=== PATIENT | male | born 1945 | race Caucasian/White ===

== ENCOUNTER 2016-04-11 07:17 | Inpatient (IN) | payer MEDICARE ==
[2016-04-11 07:55] LABS: ABSOLUTE NEUTROPHIL COUNT 13.6 K/mm3 (1.8-7.7); BASO % 0.3 % (0.2-1.0); EOS % 0.1 % (0.9-2.9); HEMATOCRIT 32.3 % (32.0-52.0); HEMOGLOBIN 10.7 gm/l (14.0-18.0); IMM NEUT # 0.1 K/mm3 (0-0.2); IMM NEUT% 0.7 % (0-1); LYMPH # 0.2 (1.0-4.8); LYMPH % 1.3 % (15-45); MEAN CORPUSCULAR HEMOGLOBIN 30.5 pg (27.0-31.0); MEAN CORPUSCULAR HGB CONC 33.1 g/dl (33.0-37.0); MEAN PLATELET VOLUME 10.9 fl (7.4-10.4); MONO % 6.4 % (4-12); NEUT % 91.2 % (43-75); PLATELET COUNT 95 K/mm3 (130-400); RED CELL DISTRIBUTION WIDTH 14.6 % (11.5-14.5)
[2016-04-11] MEDS ORDERED: SODIUM CHLORIDE 0.9% 1,000 ML ONE (08:01)
[2016-04-11] MEDS ORDERED: ACETAMINOPHEN 500 MG TABLET ONE (08:01)
[2016-04-11 08:06] LABS: INR 2.54
[2016-04-11 08:12] LABS: ALB/GLOB RATIO 1.4 (>1.0); ALBUMIN 3.7 gm/dL (3.5-5.7); CALCIUM 8.8 mg/dL (8.6-10.3)
[2016-04-11] MEDS ORDERED: PIPERACILLIN SODIUM/TAZOBACTAM 3.375 G VIAL IV ONE (08:12)
[2016-04-11] MEDS ORDERED: PIPERACILLIN-TAZO PREMIX BAG 50 ML IV ONE (08:12)
[2016-04-11 08:15] LABS: TROPONIN I 0.04 ng/ml (0.0-0.06)
[2016-04-11 08:31] LABS: URINE BILIRUBIN NEGATIVE (NEGATIVE); URINE BLOOD 1+ (NEGATIVE); URINE GLUCOSE (UA) 1+ (NEGATIVE); URINE LEUKOCYTE ESTERASE NEGATIVE (NEGATIVE); URINE NITRITE NEGATIVE (NEGATIVE); URINE PROTEIN 2+ (NEGATIVE); URINE UROBILINOGEN NORMAL (0-1 mg/dl)
[2016-04-11 08:32] LABS: URINE APPEARANCE CLEAR; URINE COLOR YELLOW
[2016-04-11 08:40] LABS: URINE BACTERIA 0; URINE EPITHELIAL CELLS RARE /hpf; URINE WBC NEG /hpf
[2016-04-11 08:46] LABS: BAND 12 % (0-10); BASOPHIL 1 % (0-1); EOSINOPHIL 1 % (1-3); HYPOCHROMIA 1+; LYMPHOCYTE 5 % (15-45); MONOCYTE 3 % (4-12); NEUTROPHILS 78 % (43-75); PLATELET ESTIMATE NORMAL (NORMAL); TOTAL CELLS COUNTED 100
--- NOTE | 2016-04-11 09:10 | RAD ---
CHEST - 2 VIEWS COMPARISON: Chest 2 views, 06/05/2011 HISTORY: 70-year-old male. Fever. FINDINGS: Views: Frontal and lateral chest Lungs: Increased opacity in the right lung apex is similar to 2012. Heart and vessels: No acute finding. Prosthetic aortic and mitral valves. Mild cardiomegaly and enlarged pulmonary trunk. Trachea and bronchi: Normal Mediastinum and blas: Normal Costophrenic sulci: Normal Chest wall and bones: Sternotomy wires. Old compression fracture of the L1 vertebral body. No acute finding. Upper abdomen: Vascular calcification. IMPRESSION: 1. Chronic opacity in the apex of the right lung, unchanged as 2012. Most likely scarring rather than acute infiltrate. 2. Prosthetic aortic and mitral valves with enlarged pulmonary trunk. Enlarged pulmonary trunk can be cause by pulmonary hypertension. 3. Old compression fracture of the L1 vertebral body. 4. Atherosclerosis of the aorta.
[2016-04-11] MEDS ORDERED: LEVOFLOXACIN 750 MG/D5W 150 ML 150 ML IV ONE (09:13)
[2016-04-11] MEDS ORDERED: PUMP TUBING ONE (09:43)
[2016-04-11 09:54] VITALS: BMI 29.4
[2016-04-11] MEDS ORDERED: MENTHOL/CETYLPYRD 1 EACH LOZENGE PO PRN ×2 (10:22→23:37)
[2016-04-11] MEDS ORDERED: MAGNESIUM HYDROXIDE 30 ML UDCUP PO PRN (10:22)
[2016-04-11] MEDS ORDERED: BLISTEX LIPSTICK 1 EACH TP PRN ×2 (10:22→23:37)
[2016-04-11] MEDS: SODIUM CHLORIDE 0.9% 1,000 ML IV SCH ×2 (10:51→19:28)
[2016-04-11] MEDS: GLIMEPIRIDE 4 MG TABLET PO SCH (10:56)
[2016-04-11] MEDS: METOPROLOL TARTRATE 50 MG TABLET PO SCH (10:56)
[2016-04-11] MEDS: LISINOPRIL 5 MG TABLET PO SCH (10:56)
[2016-04-11] MEDS: DIGOXIN 0.25 MG TABLET PO SCH (11:26)
[2016-04-11] MEDS: SITAGLIPTIN PHOSPHATE 100 MG TABLET PO SCH (11:26)
[2016-04-11] MEDS: INSULIN ASPART (DOSE) 100 UNITS/1 ML SUB-Q PRN ×2 (11:30→17:54)
--- NOTE | 2016-04-11 11:32 | HP ---
Papa Tong [id number] : 1945 DATE OF ADMISSION: 04/11/2016 IDENTIFICATION: Mr. Tong is a 70-year-old followed by Dr. Cleary. CHIEF COMPLAINT: Chills and vomiting. HISTORY OF PRESENT ILLNESS: Mr. Tong was brought into the emergency department this morning due to symptoms of chills that started yesterday and an episode of disequilibrium and vomiting which occurred this morning. He does report that he has had a poor appetite for a couple of days and has not been eating much. The chills as well as apparent fever over night started yesterday afternoon and this morning when he got up he could not stand up. He was unsteady on his feet and started vomiting. He does report some stiffness in his neck like a muscle cramp. He is getting over an upper respiratory infection which he had last week and still has some cough from that and reports dark stool with an episode of diarrhea yesterday, however, he does have known chronic gastrointestinal blood loss. He appears to have an acute infectious process and was found to have a wound on the right foot which he says has been present for a month, started with a blister and then evolved to a crusted ulcer. He has not had any erythema going up the leg or swelling in the lymph nodes of the groin, but he has had some pain in the dorsum of the right foot. On presentation to the emergency department, he was febrile to 103.1 degrees and had an elevated white blood cell count. He has been treated with intravenous Zosyn and levofloxacin and referred to the hospitalist service. REVIEW OF SYSTEMS: HEENT: No headache, lightheadedness, or loss of consciousness, just disequilibrium. Denies problems with ears, eyes, nose, or throat. Respiratory: A little residual cough from his upper respiratory infection last week, no dyspnea. Cardiac: No chest pain or palpations. Gastrointestinal: Loss of appetite, but no dyspepsia or reflux. He did have nausea and vomiting this morning. No abdominal pain. One episode of diarrhea yesterday and melena for the last two days. Genitourinary: No dysuria or urgency. Musculoskeletal: Reports the kink in his neck and has had some right foot pain. Constitutional: Chills and fevers starting yesterday. PAST MEDICAL HISTORY: 1. Diabetes mellitus type 2. 2. Valvular heart disease, he had rheumatic fever as a teenager and has both mitral and aortic valve prostheses. He is chronically anticoagulated on warfarin for this. 3. Chronic atrial fibrillation. 4. Hypertension. 5. Dyslipidemia. 6. History of cellulitis of the right leg one year ago. 7. Overweight with body mass index of 29.4. 8. 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 This has been extensively worked up at [facility] and the source has not been found. He does get intermittent transfusions when his hemoglobin gets low. PAST SURGICAL HISTORY: 1. Appendectomy as a child. 2. Umbilical hernia repair. 3. Cardiac valve replacements in 2004 and 2011. 4. Thoracentesis for a pleural effusion following the heart surgery. ALLERGIES: REPORTED TO FONDAPARINUX WHICH CAUSED A RASH. CURRENT MEDICATIONS: 1. Digoxin 0.25 mg by mouth daily. 2. Furosemide 40 mg by mouth daily. 3. Glimepiride 4 mg by mouth twice daily. 4. Lisinopril 5 mg by mouth daily. 5. Metformin 1000 mg by mouth twice daily. 6. Metoprolol tartrate 25 mg by mouth twice daily. 7. Simvastatin 40 mg by mouth daily. 8. Januvia 100 mg by mouth daily. 9. Spironolactone 25 mg by mouth daily. 10. Warfarin 2.5 mg all days except for Thursday and when he takes 5 mg. HABITS: He did use tobacco for about 10 years, but quit in 1974, none since then. Rarely drinks alcohol about a beer once a month. 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 He lives with his and cat in [place]. Advanced directive was discussed and he does not want to be resuscitated or placed on a ventilator. FAMILY HISTORY: Significant for coronary artery disease and his father of a brain tumor. PHYSICAL EXAMINATION: GENERAL: This is a pleasant overweight 70-year-old. He does not appear in any acute distress. VITAL SIGNS: Temperature of 103.1 degrees Fahrenheit on presentation to the emergency room. Blood pressure 137/66, dropped to 92/50, but has improved to 134/62 after fluid hydration, pulse 120's to 130's and irregular, respiratory rate 18 on presentation, did go up to 35, oxygen saturation 90% to 92% on room air. HEENT: Pupils equal, round and reactive. Extraocular muscles intact. He has had cataract surgery. Oropharynx is moist. Dentition in moderate to poor condition. NECK: Supple. There is some tenderness in the muscle bellies posteriorly, but no stiffness. No adenopathy. CHEST: Clear to auscultation. HEART: Irregularly, irregular with mechanical sounds. ABDOMEN: Soft, nontender, normal bowel tones. No organomegaly. EXTREMITIES: The plantar surface of right foot has a 3 x 4 cm crusted unstageable ulceration over the head of the second metatarsal. There is also a 1 x 1 cm crusted unstageable ulcer on the tip of the second toe. There is no edema. No cyanosis or clubbing. Both lower extremities are warm to the touch. No right inguinal adenopathy. NEUROLOGIC: Alert and oriented. No focal deficits. LABORATORIES: White blood cell count if 14.9 with 78% neutrophils, 12% bands, hemoglobin and hematocrit 10.7 and 32.3, platelets 95. INR is therapeutic at 2.54 with a goal range of 2.5 to 3.5. Lactate normal at 1.3. Sodium low at 125, potassium 5.4, chloride 97, CO2 20, BUN 37, creatinine 1.2, glucose 307. Liver enzymes are normal. Cardiac enzymes are normal. Urinalysis specific gravity of 1.010, 2+ protein, 1+ glucose, negative ketones, negative nitrite and leukocyte esterase. Influenza A and B negative. Digoxin level 1.0. DIAGNOSTICS: Chest x-ray shows chronic scarring at the apex of the right lung, prosthetic valves and enlarged pulmonary trunk, old compression fractures, atherosclerosis, but does not appear to show an acute pneumonia. ASSESSMENT: Mr. Tong is a 70-year-old who presents with fever and sepsis syndrome with most likely source being infection of his right foot wounds. He has acute hyponatremia and thrombocytopenia. He has chronic anemia which is actually better than his usual and chronic atrial fibrillation with tachycardia which is likely related to sepsis and dehydration and does not require additional rate control medication at this time. PLAN: 1. Admit to intermediate care. 2. Continue antibiotic treatment as started in the emergency department with Piperacillin/tazobactam, and levofloxacin. 3. Blood culture has been obtained. 4. He was hydrated with greater than 30mL/1 kg of normal saline. Will continue normal saline maintenance fluids. 5. Continue usual outpatient medications except for metformin. 6. Check blood sugar before meals and bedtime and cover with insulin as indicated. 7. He is fully anticoagulated on warfarin and does not require additional venous thromboembolism prophylaxis. 8. Do not resuscitate, do not intubate status per his preference. 9. Physical and occupational therapy evaluation and treatment. 10. Steps wound consult for the right foot wounds. I believe that enzymatic debridement would be appropriate. JOB: [id number] CC: DR. Cleary
[2016-04-11] MEDS ORDERED: ONDANSETRON 4 MG/2ML 2 ML VIAL IV PRN ×2 (14:33→23:48)
[2016-04-11] MEDS: PIPERACILLIN-TAZO PREMIX BAG 3.375 G in Premix (D5W) 50 ml 1 EACH IV SCH ×2 (14:39→20:51)
[2016-04-11] MEDS: ACETAMINOPHEN 325 MG TABLET PO PRN (14:39)
[2016-04-11] MEDS: WARFARIN SODIUM 2.5 MG TABLET PO SCH (16:00)
[2016-04-11] MEDS: VANCOMYCIN HCL 1 G in SODIUM CHLORIDE 0.9% 250 ML IV SCH (19:55)
[2016-04-11] MEDS ORDERED: SUCCINYLCHOLINE CHL 20 MG/ML DOSE ONE (22:04)
[2016-04-11] MEDS ORDERED: PROPOFOL 20 ML IV ONE (22:04)
[2016-04-11] MEDS ORDERED: ONDANSETRON 4 MG/2ML 2 ML VIAL ONE (22:06)
[2016-04-11] MEDS ORDERED: PHENYLEPHRINE 10 MG/1 ML (1%) VIAL ONE (22:09)
[2016-04-11] MEDS ORDERED: SODIUM CHLORIDE 0.9% 100 ML IV ONE (22:09)
--- NOTE | 2016-04-11 22:31 | CONS ---
LOUISE TONG [id number] DATE OF SERVICE: 04/11/2016 SURGEON: Dr. Madan Ledezma REQUESTING PHYSICIAN: Dr. Mauricio Last HISTORY OF PRESENT ILLNESS: I had the pleasure of seeing Mr. Tong in the [facility] today. He is a 70-year-old gentleman who approximately one month ago was shoveling, and after he had worked in the yard for a number of hours he noticed a blister and a possible hematoma on the underside of his right forefoot related to repeated trauma secondary to shoveling. This hematoma did not improve. He was seen by his primary care doctor who investigated it carefully, but felt that it was improving. Unfortunately, over the last 24-48 hours Mr. Tong has developed sepsis related to an abscess in his right forefoot. PAST MEDICAL HISTORY: Mr. Tong has a past medical history significant for: 1. Diabetes Type-2. 2. Valvular heart disease, for which he takes warfarin. He has both a mitral and aortic valve prosthesis. 3. He has chronic atrial fibrillation. 4. Hypertension. 5. Dyslipidemia. 6. History of cellulitis in the right leg approximately one year ago. 7. He has a BMI of 29.4. 8. He is also found to have chronic anemia. PAST SURGICAL HISTORY: Includes: 1. Appendectomy as a child. 2. Umbilical hernia repair. 3. Cardiac valve replacement in 2004 and 2011. ALLERGIES: Include Fondaparinux. CURRENT MEDICATIONS: Include: 1. Digoxin. 2. Furosemide. 3. Glimepiride. 4. Lisinopril. 5. Metformin. 6. Metoprolol. 7. Simvastatin. 8. Januvia. 9. Spironolactone. 10. Warfarin. PHYSICAL EXAMINATION: Mr. Tong has evidence of an infection in his right forefoot. He has an area of what appears to be a dry scab over a 2 x 2 cm abscess in the pulp of the right forefoot on the plantar surface. This is consistent with trauma related to his previously discussed shoveling. He has no evidence of cellulitis. He has both a dorsalis pedis and a posterior tibial pulse palpable on the right side. He has minimal evidence of cellulitis. Upon depression of the abscess, there is a small amount of purulent material passing through the scab on the foot. LABS: Laboratory values reveal a white count of 14.9, with a left shift and bandemia. He is anticoagulated, at an INR of 2.5, has a sodium of 125, potassium 5.5 and a creatinine of 1.2. PLAN: I had a long discussion today with Mr. Tong. He has been admitted to [facility] with evidence of sepsis. He has undergone an extensive investigation to rule-out sites of infection, and it is apparent at this point that he has an abscess on his right forefoot on the plantar surface, which is resulting in systemic infection. He is currently on piperacillin/tazobactam, as well as levofloxacin. He is being managed by internal medicine for management of IV treatment of antibiotics, as well as management of his diabetes. He will remain anticoagulated due to his heart valve issues. Plan for a debridement of his abscess on the right plantar surface of the foot. I did discuss the risks and benefits of surgery, which included ongoing infection and potential osteomyelitis, for which orthopedics will need to be involved if that is the case. I also discussed issues related to worsening sepsis. Informed consent is obtained after discussion of the risks of general surgery which included in his case wound infection, urinary tract infection, CA, PE, DVT, ongoing bleeding related to his warfarin use and stroke related to his atrial fibrillation, as well as infective endocarditis. I also discussed the possibility of nerve injury and return to the operating room if the infection is not controlled. I will plan for an operative procedure at the earliest convenient time.
[2016-04-11] MEDS ORDERED: FENTANYL 100 MCG/2 ML VIAL ONE (23:12)
[2016-04-11] MEDS ORDERED: EPHEDRINE SULFATE UD SYR 25 MG 25 MG/5 ML SYRINGE IV ONE (23:27)
[2016-04-11] MEDS ORDERED: FENTANYL 100 MCG/2 ML VIAL IV PRN (23:48)
[2016-04-11] MEDS ORDERED: PROMETHAZINE HCL 25 MG/ML VIAL IM PRN (23:48)
[2016-04-11] MEDS ORDERED: NALOXONE HCL 0.4 MG/ML VIAL IV PRN (23:48)
[2016-04-11] MEDS ORDERED: ATROPINE SULFATE 0.4 MG/1 ML VIAL IV PRN (23:48)
[2016-04-11] MEDS ORDERED: MEPERIDINE 25 MG/ML SYRINGE IV PRN (23:48)
[2016-04-11] MEDS ORDERED: HYDROMORPHONE HCL 1 MG/ML SYRINGE IV PRN (23:48)
[2016-04-12] MEDS: METOPROLOL TARTRATE 50 MG TABLET PO SCH ×3 (00:37→21:28)
[2016-04-12] MEDS: GLIMEPIRIDE 4 MG TABLET PO SCH ×3 (00:37→21:27)
[2016-04-12] MEDS: SODIUM CHLORIDE 0.9% 1,000 ML IV SCH ×4 (00:42→11:01)
[2016-04-12] MEDS: PIPERACILLIN-TAZO PREMIX BAG 3.375 G in Premix (D5W) 50 ml 1 EACH IV SCH ×4 (02:00→21:22)
[2016-04-12] MEDS: ACETAMINOPHEN 325 MG TABLET PO PRN ×3 (04:45→19:08)
[2016-04-12 05:43] LABS: INR 2.13; PROTHROMBIN TIME 23.3 SECONDS (9.3-11.4)
[2016-04-12 06:06] LABS: ABSOLUTE NEUTROPHIL COUNT 8.5 K/mm3 (1.8-7.7); BASO % 0.4 % (0.2-1.0); EOS % 0.1 % (0.9-2.9); HEMOGLOBIN 8.8 gm/l (14.0-18.0); IMM NEUT # 0.1 K/mm3 (0-0.2); IMM NEUT% 0.6 % (0-1); LYMPH # 0.5 (1.0-4.8); LYMPH % 4.8 % (15-45); MEAN CELL VOLUME 96.6 fl (80.0-94.0); MEAN CORPUSCULAR HEMOGLOBIN 30.3 pg (27.0-31.0); MEAN CORPUSCULAR HGB CONC 31.4 g/dl (33.0-37.0); MEAN PLATELET VOLUME 11.2 fl (7.4-10.4); MONO % 9.7 % (4-12); NEUT % 84.4 % (43-75); RED CELL DISTRIBUTION WIDTH 15.1 % (11.5-14.5)
[2016-04-12 06:11] LABS: PLATELET COUNT 59 K/mm3 (130-400)
[2016-04-12] MEDS: VANCOMYCIN HCL 1 G in SODIUM CHLORIDE 0.9% 250 ML IV SCH ×2 (07:27→19:30)
[2016-04-12] MEDS: INSULIN ASPART (DOSE) 100 UNITS/1 ML SUB-Q PRN ×2 (08:37→12:55)
[2016-04-12] MEDS: LISINOPRIL 5 MG TABLET PO SCH (08:43)
[2016-04-12] MEDS: SITAGLIPTIN PHOSPHATE 100 MG TABLET PO SCH (08:43)
[2016-04-12] MEDS: FUROSEMIDE 40 MG TABLET PO SCH (08:43)
[2016-04-12] MEDS: SPIRONOLACTONE 25 MG TABLET PO SCH (08:43)
[2016-04-12] MEDS ORDERED: LEVOFLOXACIN 750 MG/D5W 150 ML 750 MG in Premix (D5W) 150 ml Bag 1 EACH IV SCH (09:00)
[2016-04-12] MEDS ORDERED: SODIUM CHLORIDE 0.9% 500 ML IV PRN (10:26)
--- NOTE | 2016-04-12 10:48 | PDOC43 ---
- Subjective Chief Complaint: Chills and vomiting Feeling better today but now having frequent black diarrhea. - Objective Vital Signs Temperature 101.6 F 04/12/16 06:59 Pulse Rate 102 04/12/16 06:59 Respiratory Rate 24 04/12/16 07:08 Blood Pressure 109/49 04/12/16 06:59 O2 Saturation by Pulse Oximetry 97 04/12/16 06:59 Oxygen Delivery Method Room Air Oxygen Flow Rate 0 Intake and Output 04/11/16 04/12/16 04/13/16 06:59 06:59 06:59 Intake Total 6655 Output Total 1530 Balance 5125 General: Alert, Oriented x3, Cooperative, No Acute Distress HEENT: Mucous membr. moist/pink Lungs: Clear to Auscultation Bilaterally Cardiovascular: Irregular (mechanical heart sounds) Abdomen: Soft, Normal Bowel Sounds, No Tenderness, No Masses Extremities: Pulses Diminished but Palpable, No Edema Wound: Drainage (blood stain on right foot dressing) Neurological: Normal Speech Psych/Mental Status: Normal Mood Laboratory 04/12/16 05:15 04/12/16 05:15 04/12/16 04/12/16 04/12/16 07:13 05:15 00:43 RBC 2.90 L MCV 96.6 H MCHC 31.4 L RDW 15.1 H PT 23.3 H BUN 38 H Estimated GFR 46 L POC Capillary Glucose 160 H 168 H Calcium 8.0 L 04/11/16 04/11/16 04/11/16 23:58 20:49 17:10 RBC MCV MCHC RDW PT BUN Estimated GFR POC Capillary Glucose 172 H 193 H 281 H Calcium 04/11/16 10:58 RBC MCV MCHC RDW PT BUN Estimated GFR POC Capillary Glucose 333 H Calcium Current Medications: Current meds reviewed in EMR. - Problems: Assessment/Plan (1) Abscess Status: Acute Assessment/Plan: Bacterial abscess of right foot present on admit. S/P debriedment 04/11 p.m. Continue Zosyn and vancomycin. (2) Sepsis Status: Acute Assessment/Plan: Severe sepsis with leukocytosis, fever, hyponatremia and hyperglycemia present on admit secondary to foot abscess. Improved but continues to have fever, repeat blood cx with fever. (3) Hyponatremia Status: Acute Assessment/Plan: Improving (4) Valvular heart disease Status: Chronic Assessment/Plan: Rheumatic fever in teens resulting in prosthetic mitral and aortic valves. Chronic anticoagulation on warfarin with goal INR 2.5-3.5. Repeat blood cultures to detect endocarditis. (5) Anticoagulated on Coumadin Status: Chronic Assessment/Plan: INR below therapeutic range today but expected to increase due to antibiotic treatment, continue to check INR daily. 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 (7) Atrial fibrillation Qualifiers: Atrial fibrillation type: chronic Qualifier Code: (I48.2) Chronic atrial fibrillation Status: Chronic Assessment/Plan: Chronic, rate controlled and anticoagulated. (8) GIB (gastrointestinal bleeding) Qualifiers: GI bleed type/associated pathology: unspecified gastrointestinal hemorrhage type Qualifier Code: (K92.2) Gastrointestinal hemorrhage, unspecified Status: Chronic Assessment/Plan: Chronic condition appears exacerbated by sepsis, follow. (9) Anemia Qualifiers: Iron deficiency anemia type: chronic blood loss Status: Chronic Assessment/Plan: Due to chronic GI bleeding, Hgb has dropped significantly, will transfuse one unit today and follow. (10) Dyslipidemia Status: Chronic Assessment/Plan: Continue usual treatment. (11) HTN (hypertension), benign Status: Chronic Assessment/Plan: Stable. (12) Obesity (BMI 30.0-34.9) Status: Chronic Assessment/Plan: Complicates care VTE Prophylaxis: warfarin Disposition: remain in [facility] today.
[2016-04-12] MEDS: DIGOXIN 0.25 MG TABLET PO SCH (11:03)
[2016-04-12] MEDS ORDERED: BLOOD Y PLUMSET W/CASSETTE ONE (11:53)
--- NOTE | 2016-04-12 12:39 | OP ---
LOUISE TONG [id number] DATE OF OPERATION: April 11, 2016 SURGEON: Madan Martinez M.D. PREOPERATIVE DIAGNOSIS: Abscess right forefoot on plantar surface. POST OPERATIVE DIAGNOSIS: Abscess with ulceration right forefoot plantar surface. COMPLICATIONS: None. OPERATION PERFORMED: Debridement of ulcer and abscess right forefoot. CLINICAL VIGNETTE: Mr. Tong is a 70-year-old gentleman admitted to [facility] intensive care unit with symptoms of low grade sepsis. He had what appeared to be an infected hematoma on the plantar surface of his right forefoot after traumatic injury from shoveling approximately a month ago. On examination, there was purulent material in the region of this ulcer/abscess. Prior to coming to the operating room, I had the nursing staff soak the foot to allow softening of the tissue. OPERATIVE PROCEDURE: Mr. Tong was brought to the operating room and prepped and draped in the usual fashion in the supine position after being given general anesthetic, subcutaneous heparin, and preoperative antibiotics. After soaking his foot, the abscess appeared to break. I debrided the remaining portion of the abscess and trimmed the edges of the ulcer down to the base. It was a superficial ulcer. It did not appear to extend into the plantar fascia or into evidence of bone. The soft tissue below the subcutaneous skin and abscess cavity appeared to be intact with evidence of vascularity with ulcer debridement. Once the ulcer and abscess were debrided, the ulcer and abscess cavity were sent off to pathology for further evaluation and for culture. The wound was then packed with 4x4 gauze and the wound was dressed. Mr. Tong was stable throughout the procedure. He had no complications identified intraoperatively and was transported to recovery in stable condition.
[2016-04-12] MEDS: WARFARIN SODIUM 2.5 MG TABLET PO SCH (16:01)
[2016-04-12] MEDS: SIMVASTATIN 40 MG TABLET PO SCH (21:28)
[2016-04-12] MEDS: OXYCODONE HCL 5 MG TABLET PO PRN (22:59)
[2016-04-13] MEDS: PIPERACILLIN-TAZO PREMIX BAG 3.375 G in Premix (D5W) 50 ml 1 EACH IV SCH ×4 (02:27→21:06)
[2016-04-13] MEDS: ACETAMINOPHEN 325 MG TABLET PO PRN ×3 (06:54→17:42)
[2016-04-13 07:30] LABS: INR 2.22; PROTHROMBIN TIME 24.4 SECONDS (9.3-11.4)
[2016-04-13 07:31] LABS: VANCOMYCIN TROUGH 11.1 ug/ml (5.0-10.0)
[2016-04-13 07:45] LABS: HEMATOCRIT 25.8 % (32.0-52.0); HEMOGLOBIN 8.2 gm/l (14.0-18.0); MEAN CELL VOLUME 96.6 fl (80.0-94.0); MEAN CORPUSCULAR HEMOGLOBIN 30.7 pg (27.0-31.0); MEAN CORPUSCULAR HGB CONC 31.8 g/dl (33.0-37.0); RED CELL DISTRIBUTION WIDTH 15.4 % (11.5-14.5)
[2016-04-13] MEDS ORDERED: VANCOMYCIN HCL IV SCH (08:15)
[2016-04-13] MEDS ORDERED: SODIUM CHLORIDE 0.9% IV SCH (08:15)
[2016-04-13] MEDS ORDERED: PUMP TUBING ONE (08:47)
[2016-04-13] MEDS: INSULIN ASPART (DOSE) 100 UNITS/1 ML SUB-Q PRN ×3 (08:55→21:51)
[2016-04-13] MEDS: SODIUM CHLORIDE 0.9% 100 ML IV PRN (08:55)
[2016-04-13] MEDS ORDERED: SODIUM CHLORIDE 0.9% 500 ML IV PRN (08:55)
[2016-04-13] MEDS: METOPROLOL TARTRATE 50 MG TABLET PO SCH ×2 (08:56→21:11)
[2016-04-13] MEDS: FUROSEMIDE 40 MG TABLET PO SCH (08:56)
[2016-04-13] MEDS: LISINOPRIL 5 MG TABLET PO SCH (08:56)
[2016-04-13] MEDS: SITAGLIPTIN PHOSPHATE 100 MG TABLET PO SCH (08:56)
[2016-04-13] MEDS: GLIMEPIRIDE 4 MG TABLET PO SCH ×2 (08:56→21:11)
[2016-04-13] MEDS: SPIRONOLACTONE 25 MG TABLET PO SCH (08:56)
[2016-04-13] MEDS ORDERED: BLOOD Y PLUMSET W/CASSETTE ONE (09:19)
--- NOTE | 2016-04-13 09:55 | PDOC43 ---
- Subjective Chief Complaint: Chills and vomiting Neck still achy, frequent black wattery stools, otherwise feeling improved. - Objective Vital Signs Temperature 99 F 04/13/16 08:10 Pulse Rate 91 04/13/16 06:46 Respiratory Rate 21 04/13/16 06:58 Blood Pressure 121/61 04/13/16 06:46 O2 Saturation by Pulse Oximetry 95 04/13/16 06:46 Oxygen Delivery Method Room Air Oxygen Flow Rate 0 Intake and Output 04/12/16 04/13/16 04/14/16 06:59 06:59 06:59 Intake Total 6655 2984 100 Output Total 1530 Balance 5125 2984 100 General: Alert, Oriented x3, Cooperative, No Acute Distress HEENT: Mucous membr. moist/pink Lungs: Clear to Auscultation Bilaterally Cardiovascular: Irregular (mechanical heart sounds) Abdomen: Soft, Normal Bowel Sounds, No Tenderness, No Masses Extremities: Pulses Diminished but Palpable, No Edema Wound: Other (Ulcer on right foot is stage 2 and clean, will dress with Therahoney) Neurological: Normal Speech Psych/Mental Status: Normal Mood Laboratory 04/13/16 06:50 04/13/16 06:50 04/13/16 04/13/16 04/12/16 08:27 06:50 21:21 RBC 2.67 L MCV 96.6 H MCHC 31.8 L RDW 15.4 H PT 24.4 H BUN 46 H Estimated GFR 43 L POC Capillary Glucose 186 H 135 H Calcium 8.0 L Vancomycin Trough 11.1 H 04/12/16 04/12/16 17:11 12:47 RBC MCV MCHC RDW PT BUN Estimated GFR POC Capillary Glucose 102 H 276 H Calcium Vancomycin Trough Current Medications: Current meds reviewed in EMR. - Problems: Assessment/Plan (1) Abscess Status: Acute Assessment/Plan: Bacterial abscess of right foot present on admit. S/P debriedment 04/11 p.m. Treated with Zosyn and vancomycin. Wound culture x1 growing Strep, other wound cx no growth. (2) Sepsis Qualifiers: Sepsis type: Streptococcus group B Qualifier Code: (A40.1) Sepsis due to streptococcus, group B Status: Acute Assessment/Plan: Severe sepsis with leukocytosis, fever, hyponatremia and hyperglycemia present on admit secondary to foot abscess. Improved but continues to have fever, repeat blood cx with fever. One culture with GBS, will continue Zosyn but D/C vancomycin and follow. (3) Hyponatremia Status: Acute Assessment/Plan: Improving (4) Valvular heart disease Status: Chronic Assessment/Plan: Rheumatic fever in teens resulting in prosthetic mitral and aortic valves. Chronic anticoagulation on warfarin with goal INR 2.5-3.5. Repeat blood cultures to detect endocarditis. (5) Anticoagulated on Coumadin Status: Chronic Assessment/Plan: INR below therapeutic range today but expected to increase due to antibiotic treatment, continue to check INR daily. 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 (7) Atrial fibrillation Qualifiers: Atrial fibrillation type: chronic Qualifier Code: (I48.2) Chronic atrial fibrillation Status: Chronic Assessment/Plan: Chronic, rate controlled and anticoagulated. (8) GIB (gastrointestinal bleeding) Qualifiers: GI bleed type/associated pathology: unspecified gastrointestinal hemorrhage type Qualifier Code: (K92.2) Gastrointestinal hemorrhage, unspecified Status: Chronic Assessment/Plan: Chronic condition appears exacerbated by sepsis, follow. (9) Anemia Qualifiers: Iron deficiency anemia type: chronic blood loss Status: Chronic Assessment/Plan: Due to chronic GI bleeding, Hgb has dropped despite 1 unit blood given 04/12, will give another unit today. (10) Dyslipidemia Status: Chronic Assessment/Plan: Continue usual treatment. (11) HTN (hypertension), benign Status: Chronic Assessment/Plan: Stable. (12) Obesity (BMI 30.0-34.9) Status: Chronic Assessment/Plan: Complicates care (13) LARRY (acute kidney injury) Status: Acute Assessment/Plan: Baseline creatinine is 1.2, now up to 1.6. May be due to sepsis or vancomycin treatment. D/c vanco and follow. (14) Diarrhea Status: Acute Assessment/Plan: Due to chronic GI blood loss. Rx imodium. VTE Prophylaxis: warfarin Disposition: Transfer to /.
[2016-04-13] MEDS ORDERED: LOPERAMIDE HCL 2 MG CAPSULE PO PRN (09:56)
[2016-04-13] MEDS ORDERED: LOPERAMIDE HCL 2 MG CAPSULE PO ONE (09:56)
[2016-04-13] MEDS: OXYCODONE HCL 5 MG TABLET PO PRN ×3 (10:43→23:18)
[2016-04-13] MEDS: DIGOXIN 0.25 MG TABLET PO SCH (12:15)
[2016-04-13] MEDS: WARFARIN SODIUM 2.5 MG TABLET PO SCH (15:28)
[2016-04-13] MEDS ORDERED: VANCOMYCIN HCL 1 G in SODIUM CHLORIDE 0.9% 250 ML IV SCH (20:00)
[2016-04-13] MEDS: SIMVASTATIN 40 MG TABLET PO SCH (21:10)
[2016-04-14] MEDS: PIPERACILLIN-TAZO PREMIX BAG 3.375 G in Premix (D5W) 50 ml 1 EACH IV SCH ×4 (02:18→23:25)
[2016-04-14] MEDS: ACETAMINOPHEN 325 MG TABLET PO PRN ×3 (02:29→17:43)
[2016-04-14] MEDS: OXYCODONE HCL 5 MG TABLET PO PRN ×4 (04:25→20:24)
[2016-04-14 06:40] LABS: HEMOGLOBIN 8.8 gm/l (14.0-18.0); MEAN CELL VOLUME 93.4 fl (80.0-94.0); MEAN CORPUSCULAR HEMOGLOBIN 30.4 pg (27.0-31.0); MEAN CORPUSCULAR HGB CONC 32.6 g/dl (33.0-37.0); RED CELL DISTRIBUTION WIDTH 15.6 % (11.5-14.5)
[2016-04-14 06:55] LABS: INR 2.85; PROTHROMBIN TIME 31.6 SECONDS (9.3-11.4)
[2016-04-14] MEDS ORDERED: SODIUM CHLORIDE 0.9% 500 ML IV PRN (07:43)
[2016-04-14] MEDS ORDERED: FUROSEMIDE 40 MG/4 ML VIAL IV ONE (07:43)
--- NOTE | 2016-04-14 08:02 | PDOC43 ---
- Subjective Chief Complaint: Chills and vomiting Reports poor apatite, stool is more formed but still runny and black. Continues to c/o of neck soreness. - Objective Vital Signs Temperature 97.8 F 04/14/16 04:15 Pulse Rate 72 04/14/16 04:15 Respiratory Rate 18 04/14/16 04:15 Blood Pressure 91/54 04/14/16 04:15 O2 Saturation by Pulse Oximetry 94 04/14/16 04:15 Oxygen Delivery Method Room Air Oxygen Flow Rate 0 Intake and Output 04/13/16 04/14/16 04/15/16 06:59 06:59 06:59 Intake Total 2984 793 Output Total 550 Balance 2984 243 General: Alert, Oriented x3, Cooperative, Mild Distress (with neck ache) HEENT: Mucous membr. moist/pink Lungs: Clear to Auscultation Bilaterally Cardiovascular: Irregular (mechanical sounds) Abdomen: Soft, Normal Bowel Sounds, No Tenderness, No Masses Extremities: Edema (trace), Normal Pulses Skin: Normal Color Wound: Dressing Clean/Dry/Intact (on right foot) Neurological: Normal Speech Psych/Mental Status: Normal Mood Laboratory 04/14/16 06:15 04/14/16 06:15 04/14/16 04/14/16 04/13/16 07:32 06:15 21:05 RBC 2.89 L MCV MCHC 32.6 L RDW 15.6 H PT 31.6 H BUN 55 H Estimated GFR 37 L POC Capillary Glucose 166 H 217 H Calcium 8.0 L Vancomycin Trough 04/13/16 04/13/16 04/13/16 15:33 08:27 06:50 RBC 2.67 L MCV 96.6 H MCHC 31.8 L RDW 15.4 H PT BUN 46 H Estimated GFR 43 L POC Capillary Glucose 176 H 186 H Calcium 8.0 L Vancomycin Trough 11.1 H Current Medications: Current meds reviewed in EMR. - Problems: Assessment/Plan (1) Abscess Status: Acute Assessment/Plan: Bacterial abscess of right foot present on admit. S/P debriedment 04/11 p.m. Treated with Zosyn and vancomycin. Blood culture positive for Strep group B, Wound culture x1 growing Strep group B , other wound cx no growth. (2) Sepsis Qualifiers: Sepsis type: Streptococcus group B Qualifier Code: (A40.1) Sepsis due to streptococcus, group B Status: Acute Assessment/Plan: Severe sepsis with leukocytosis, fever, hyponatremia and hyperglycemia present on admit secondary to foot abscess. Resolved, last fever 36 hours ago. One culture with GBS, will continue Zosyn, consider change to cephalexin on discharge. 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 Chronic anticoagulation on warfarin with goal INR 2.5-3.5. Repeat blood cultures if febrile, check ECHO. (5) Anticoagulated on Coumadin Status: Chronic Assessment/Plan: INR therapeutic today (goal 2.5-3.5), continue to check INR daily. (6) DM2 (diabetes mellitus, type 2) Qualifiers: Diabetes mellitus complication status: with kidney complications Diabetes mellitus complication detail: with chronic kidney disease Diabetes mellitus corporate law specialist insulin use: without half-way use Chronic kidney disease stage: stage 2 (mild) Qualifier Code: (E11.22) Type 2 diabetes mellitus with diabetic chronic kidney disease Status: Chronic Assessment/Plan: Uncontrolled on admit due to sepsis, improved control now. (7) Atrial fibrillation Qualifiers: Atrial fibrillation type: chronic Qualifier Code: (I48.2) Chronic atrial fibrillation Status: Chronic Assessment/Plan: Chronic, rate controlled and anticoagulated. (8) GIB (gastrointestinal bleeding) Qualifiers: GI bleed type/associated pathology: unspecified gastrointestinal hemorrhage type Qualifier Code: (K92.2) Gastrointestinal hemorrhage, unspecified Status: Chronic Assessment/Plan: Chronic condition appears exacerbated by sepsis, Given 1 unit PRBC 04/12 and each. Receives intermittent transfusions as needed with a goal to keep Hbg > 10.0. Will give 2 more units today. (9) Anemia Qualifiers: Iron deficiency anemia type: chronic blood loss Status: Chronic Assessment/Plan: Due to chronic GI bleeding, transfuse 2 more units PRBC today. (10) Dyslipidemia Status: Chronic Assessment/Plan: Continue usual treatment. (11) HTN (hypertension), benign Status: Chronic Assessment/Plan: Stable. (12) Obesity (BMI 30.0-34.9) Status: Chronic Assessment/Plan: Complicates care (13) LARRY (acute kidney injury) Status: Acute Assessment/Plan: Baseline creatinine is 1.2, was 1.6 on 04/13, now up to 1.8. May be due to sepsis or vancomycin treatment. Vanco stopped 04/13, continue to follow. (14) Diarrhea Status: Acute Assessment/Plan: Due to chronic GI blood loss. Rx imodium. (15) Neck strain Status: Acute Assessment/Plan: Has normal range of motion, just muscle pain not suggestive of meningitis. However, in setting of GBS sepsis and mechanical heart valves, check CT to r/o epidural abscess. VTE Prophylaxis: warfarin Disposition: Anticipate discharge in 1-2 days.
[2016-04-14] MEDS: LISINOPRIL 5 MG TABLET PO SCH (08:46)
[2016-04-14] MEDS: GLIMEPIRIDE 4 MG TABLET PO SCH ×2 (08:56→20:24)
[2016-04-14] MEDS: SPIRONOLACTONE 25 MG TABLET PO SCH (08:56)
[2016-04-14] MEDS: METOPROLOL TARTRATE 50 MG TABLET PO SCH ×2 (08:56→20:23)
[2016-04-14] MEDS: SITAGLIPTIN PHOSPHATE 100 MG TABLET PO SCH (08:57)
[2016-04-14] MEDS: FUROSEMIDE 40 MG TABLET PO SCH (08:57)
[2016-04-14] MEDS: INSULIN ASPART (DOSE) 100 UNITS/1 ML SUB-Q PRN ×4 (08:58→21:31)
[2016-04-14] MEDS ORDERED: CEPHALEXIN 500 MG CAPSULE PO SCH (09:00)
[2016-04-14] MEDS: DIGOXIN 0.25 MG TABLET PO SCH (11:40)
[2016-04-14] MEDS ORDERED: SODIUM CHLORIDE 0.9% 500 ML ONE ×2 (12:36→16:09)
[2016-04-14] MEDS ORDERED: BLOOD Y PLUMSET W/CASSETTE ONE ×2 (12:36→16:09)
[2016-04-14] MEDS ORDERED: WARFARIN SODIUM 2.5 MG TABLET PO SCH (16:00)
[2016-04-14] MEDS ORDERED: FUROSEMIDE 20 MG/2 ML VIAL ONE (16:11)
[2016-04-14] MEDS ORDERED: FUROSEMIDE 40 MG/4 ML VIAL ONE (16:13)
[2016-04-14] MEDS: SODIUM CHLORIDE 0.9% 100 ML IV PRN ×2 (17:43→23:26)
[2016-04-14] MEDS: SIMVASTATIN 40 MG TABLET PO SCH (19:27)
[2016-04-14] MEDS ORDERED: MORPHINE SULFATE 4 MG/ML SYRINGE IV ONE (22:55)
--- NOTE | 2016-04-14 22:59 | PDOC36 ---
Provider Note Subject: neck pain Note: notified of worsened neck pain, not helped despite 10 mg oxycodone. Pt had previously declined MRI, but will seek to re-order in setting of positive blood culture. Single dose of morphine ordered. No NSAIDS due to renal status. Vital Signs Last 12 Hours Temp Pulse Resp BP Pulse Ox 04/14/16 19:32 98.5 F 65 16 125/70 96 04/14/16 19:02 97.5 F 70 18 122/55 97 04/14/16 18:32 98.6 F 62 16 133/68 97 04/14/16 18:02 98.6 F 75 16 126/65 97 04/14/16 17:47 98.0 F 67 18 131/67 97 04/14/16 17:38 98.0 F 67 18 131/67 97 04/14/16 17:37 98.0 F 67 18 131/67 97 04/14/16 16:24 98.0 F 67 18 131/67 97 04/14/16 16:04 98.0 F 67 16 110/63 96 04/14/16 15:34 98.5 F 71 16 115/64 96 04/14/16 15:04 98.5 F 74 18 106/54 97 04/14/16 14:34 98.4 F 90 18 125/73 97 04/14/16 14:04 98.5 F 59 18 107/80 97 04/14/16 14:00 18 04/14/16 13:34 98.6 F 66 18 112/63 96 04/14/16 13:26 98.0 F 64 18 124/64 96 04/14/16 13:15 98.0 F 64 18 124/64 96 04/14/16 11:59 98.0 F 74 20 106/64 96 did get blood today - hence frequent VS checks.
[2016-04-14] MEDS ORDERED: PUMP TUBING ONE (23:18)
[2016-04-15] MEDS: OXYCODONE HCL 5 MG TABLET PO PRN ×3 (01:05→12:19)
[2016-04-15] MEDS: ACETAMINOPHEN 325 MG TABLET PO PRN ×2 (01:06→07:46)
[2016-04-15] MEDS: PIPERACILLIN-TAZO PREMIX BAG 3.375 G in Premix (D5W) 50 ml 1 EACH IV SCH ×2 (05:09→12:05)
[2016-04-15 06:57] LABS: HEMATOCRIT 31.2 % (32.0-52.0); HEMOGLOBIN 10.3 gm/l (14.0-18.0); MEAN CELL VOLUME 90.7 fl (80.0-94.0); MEAN CORPUSCULAR HEMOGLOBIN 29.9 pg (27.0-31.0); RED CELL DISTRIBUTION WIDTH 16.4 % (11.5-14.5)
[2016-04-15 07:09] LABS: INR 3.8; PROTHROMBIN TIME 42.8 SECONDS (9.3-11.4)
[2016-04-15 07:50] LABS: CALCIUM 8.2 mg/dL (8.6-10.3)
[2016-04-15] MEDS: METOPROLOL TARTRATE 50 MG TABLET PO SCH (10:02)
[2016-04-15] MEDS: LISINOPRIL 5 MG TABLET PO SCH (10:02)
[2016-04-15] MEDS: SITAGLIPTIN PHOSPHATE 100 MG TABLET PO SCH (10:02)
[2016-04-15] MEDS: FUROSEMIDE 40 MG TABLET PO SCH (10:03)
[2016-04-15] MEDS: GLIMEPIRIDE 4 MG TABLET PO SCH (10:03)
[2016-04-15] MEDS: SPIRONOLACTONE 25 MG TABLET PO SCH (10:03)
[2016-04-15 11:36] VITALS: BP 123/73
[2016-04-15] MEDS: DIGOXIN 0.25 MG TABLET PO SCH (12:05)
[2016-04-15] MEDS: INSULIN ASPART (DOSE) 100 UNITS/1 ML SUB-Q PRN (12:19)
--- NOTE | 2016-04-15 17:50 | DS ---
LOUISE MCKEON [id number] DATE OF ADMISSION: April 11, 2016 DATE OF DISCHARGE: April 15, 2016 DISCHARGE DIAGNOSES: Right foot abscess with severe sepsis and bacteremia caused by group B strep agalactiae. OTHER DIAGNOSES: Include: 1. Transient hyponatremia and hyperglycemia likely due to sepsis. 2. He has a history of prosthetic mitral and aortic valves on chronic anticoagulation on Coumadin. 3. He has a history of adult onset diabetes with chronic stage 3 kidney disease. 4. Chronic atrial fibrillation. 5. History of chronic gastrointestinal bleeding source unclear. 6. Acute on chronic blood loss anemia. 7. Dyslipidemia. 8. Benign essential hypertension. 9. Obesity. 10. Acute kidney injury likely due to severe sepsis. 11. Neck pain thought to be due to degenerative disc disease. CONSULTATION: Included a surgery consultation with Dr. Madan Martinez on April 11, 2016. PROCEDURES: Included: 1. Debridement of the abscess and ulceration on the right forefoot performed on April 11, 2016. 2. Transfusion of a total of four units of packed red blood cells performed on April 12, April 13, one unit each and then two units given on April 14, 2016. Post transfusion, the patient's hemoglobin appeared to be stable at 10.3. SUMMARY OF ADMISSION AND HOSPITAL COURSE: The patient is a 70-year-old male who presented with chills and vomiting, poor appetite, and was found to have a wound on his right foot present for the past month which was ulcerated and crusted. He was noted to have erythema going up the leg on the right with adenopathy in the groin. He was febrile with a temperature up to 103, tachycardic with heart rate in the 130s and met criteria for severe sepsis. Initial lactate was 1.6. Initial creatinine was 1.2 jumping up to a high of 1.8 during his treatment. He had the lesion cultured and blood cultures obtained and was admitted to the intermediate care unit by the hospitalist service, treated with IV Levaquin as well as Zosyn. His hospital course was complicated by a drop in his hemoglobin down to a low of 8.2 on April 13, 2016. He received blood as noted above. He has a slightly high INR on April 15, 2016 of 3.8 but a goal of 2.5 to 3.5 thought to be related to his antibiotics. He had mild hyponatremia during his stay with sodium around 125 improving to 132 on the day of discharge. His abscess culture grew group B strep agalactiae, and he did have a single blood culture that also grew group B strep agalactiae. Second blood cultures remained negative. He had resolution of his fever fairly rapidly. His last fever was on April 12, 2016 at 7:00 p.m. and he has been afebrile since then. His white blood cell count has improved from a high of 14.9 to normal with treatment. He has had some intermittent neck pains but no clinical evidence of abscess or acute infection. This is felt to be due to degenerative disc disease. He had an echocardiogram which showed no valvular vegetations, and he was felt to be medically stable for discharge on April 15, 2016. PHYSICAL EXAM: VITAL SIGNS: Vital signs at discharge showed a temperature of 97.8, pulse 85, blood pressure is 123/73, respirations 18, oxygen saturation 95% on room air. Body mass index 31.4. Weight is 102 kilograms. GENERAL: This is a well-developed, well-nourished male in no acute distress. HEENT: Is unremarkable. LUNGS: Are clear to auscultation bilaterally. CARDIOVASCULAR: Exam reveals a regular rate and rhythm without a murmur. ABDOMEN: Is soft, nontender, nondistended with positive bowel sounds. EXTREMITIES: Show no peripheral edema. He has dressing over the plantar aspect of the right foot with plans to have the dressing changed by our retail product demo specialist prior to discharge. For dimensions of the ulcer, please refer to nursing notes. There is no evidence of any persistent cellulitis or redness anywhere on the foot. LABORATORY STUDIES: His laboratory studies at discharge show a white count of 8.1, hemoglobin of 10.3, platelet count is low at 68. Chemistry profile showed a sodium 132, potassium 4.2, carbon dioxide 21, BUN 50, creatinine 1.7. DISPOSITION: Home. DISCHARGE CONDITION: Good. ALLERGIES: DOCUMENTED TO ARIXTRA. CODE STATUS: DO NOT RESUSCITATE. FOLLOWUP: Followup appointment is scheduled with Dr. Jc Loving on April 17, 2016 at 9:45 a.m. He can follow up with his primary care provider, Dr. Binh Cleary, as needed. He will have wound care and Coumadin management through the [facility] arranged prior to discharge. DISCHARGE MEDICATIONS: Include: 1. Oxycodone 5 to 10 mg every four hours as needed for neck pain. 2. Keflex 500 mg four times daily for ten more days for his foot infection. He will resume his previous home medications which include: 1. Digoxin 0.25 mg daily. 2. Lasix 40 mg daily. 3. Amaryl 4 mg twice daily. 4. Lisinopril 5 mg daily. 5. Metformin 1000 mg twice daily. 6. Metoprolol 25 mg twice daily. 7. Simvastatin 40 mg daily. 8. Januvia 100 mg orally daily. 9. Spironolactone 25 mg orally daily. 10. Warfarin 5 mg orally on Thursday and and 2.5 mg orally on all other days. He is going to have his Coumadin held today. Cc: Jc Loving M.D. Binh Cleary M.D.
[2016-04-16] MEDS ORDERED: WARFARIN SODIUM 2.5 MG TABLET PO SCH (16:00)
== END 2016-04-15 15:16 | disposition home or self-care (01) | DRG 872 ==
LOC: ED 07:17 → INTOOBSV 08:17 → ICU 08:17 → UNDOADMOB 08:17 → MS 10:22 → ICU 10:22 → MS 10:22 → ICU 10:22 → OBSVTOIN 04-13 09:58 → INTOOBSV 04-13 09:58 → UNDOADMIN 04-13 10:22 → ICU 04-13 18:20 → MS 04-13 18:20 → UNDODISIN 04-15 15:16
PROVIDERS: ADMIT Family Medicine; ATTEND Family Medicine
PROC: 0H9MXZZ Drainage of Right Foot Skin, External Approach (ICD-10-PCS; principal; 2016-04-11)
DX: A40.1 Sepsis due to streptococcus, group B (principal); L02.611 Cutaneous abscess of right foot; M00.9 Pyogenic arthritis, unspecified; R65.20 Severe sepsis without septic shock; J98.4 Other disorders of lung; Z87.311 Personal history of (healed) other pathological fracture; I70.0 Atherosclerosis of aorta; E11.9 Type 2 diabetes mellitus without complications; I25.10 Atherosclerotic heart disease of native coronary artery without angina pectoris; Z79.01 Long term (current) use of anticoagulants; I48.2 Chronic atrial fibrillation; I10 Essential (primary) hypertension; E66.9 Obesity, unspecified; Z68.29 Body mass index [BMI] 29.0-29.9, adult; D64.9 Anemia, unspecified; Z66 Do not resuscitate; E78.5 Hyperlipidemia, unspecified

== ENCOUNTER 2016-05-21 10:13 | Inpatient (IN) | payer MEDICARE ==
[2016-05-21 11:24] LABS: ABSOLUTE NEUTROPHIL COUNT 11.3 K/mm3 (1.8-7.7); BASO % 0.3 % (0.2-1.0); EOS # 0.2 (0.0-0.5); EOS % 1.1 % (0.9-2.9); HEMATOCRIT 21.5 % (32.0-52.0); HEMOGLOBIN 7.1 gm/l (14.0-18.0); IMM NEUT # 0.8 K/mm3 (0-0.2); IMM NEUT% 5.8 % (0-1); LYMPH # 0.7 (1.0-4.8); LYMPH % 5.2 % (15-45); MEAN CELL VOLUME 93.5 fl (80.0-94.0); MEAN CORPUSCULAR HEMOGLOBIN 30.9 pg (27.0-31.0); MONO # 0.9 (0.0-0.8); MONO % 6.2 % (4-12); NEUT % 81.4 % (43-75); PLATELET COUNT 261 K/mm3 (130-400); RED CELL DISTRIBUTION WIDTH 22.1 % (11.5-14.5)
[2016-05-21 11:35] LABS: ALB/GLOB RATIO 1.5 (>1.0); ALBUMIN 3.6 gm/dL (3.5-5.7); CALCIUM 9.2 mg/dL (8.6-10.3); PROTHROMBIN TIME 68.5 SECONDS (9.3-11.4)
[2016-05-21 11:39] LABS: INR 5.94
[2016-05-21] MEDS ORDERED: PHYTONADIONE 5 MG IV ONE (12:15)
[2016-05-21] MEDS ORDERED: [UNRECOGNIZED DRUG - OTHER] IV ONE (12:15)
[2016-05-21] MEDS ORDERED: PROTHROMBIN COMPLX (PCC HUMAN) 500 UNITS KIT IV ONE ×2 (12:30)
[2016-05-21] MEDS ORDERED: SODIUM CHLORIDE 0.9% 100 ML IV ONE (12:32)
[2016-05-21] MEDS ORDERED: SODIUM CHLORIDE 0.9% FLUSH 10 ML ONE (12:32)
[2016-05-21] MEDS ORDERED: PUMP TUBING ONE (12:32)
[2016-05-21 12:37] VITALS: BMI 27.8
[2016-05-21] MEDS: SODIUM CHLORIDE 0.9% 100 ML BAG IV SCH (12:45)
[2016-05-21] MEDS ORDERED: BISACODYL 10 MG SUP PR PRN (13:33)
[2016-05-21] MEDS ORDERED: MENTHOL/CETYLPYRD 1 EACH LOZENGE PO PRN (13:33)
[2016-05-21] MEDS ORDERED: MAGNESIUM HYDROXIDE 30 ML UDCUP PO PRN (13:33)
[2016-05-21] MEDS ORDERED: BLISTEX LIPSTICK 1 EACH TP PRN (13:33)
[2016-05-21] MEDS ORDERED: SODIUM CHLORIDE 0.9% 100 ML IV PRN (13:33)
[2016-05-21] MEDS ORDERED: BISACODYL 5 MG TABLET.EC PO PRN (13:33)
[2016-05-21] MEDS ORDERED: PANTOPRAZOLE SODIUM 40 MG VIAL IV SCH (13:39)
[2016-05-21] MEDS ORDERED: OXYCODONE HCL 5 MG TABLET PO PRN (13:44)
[2016-05-21] MEDS ORDERED: WARFARIN PER PHARMACY 1 EACH DOSE PO SCH (13:45)
[2016-05-21] MEDS: SODIUM CHLORIDE 0.9% 1,000 ML IV SCH (14:29)
[2016-05-21 14:30] LABS: INR 1.5; PROTHROMBIN TIME 16.1 SECONDS (9.3-11.4)
[2016-05-21] MEDS: INSULIN ASPART (DOSE) 100 UNITS/1 ML SUB-Q PRN ×3 (14:31→20:56)
[2016-05-21] MEDS: PANTOPRAZOLE SODIUM 40 MG VIAL IV SCH ×2 (14:42→15:17)
[2016-05-21] MEDS ORDERED: BLOOD Y PLUMSET W/CASSETTE ONE ×2 (15:02→18:07)
[2016-05-21] MEDS: SODIUM CHLORIDE 0.9% 500 ML IV PRN ×2 (15:18→18:17)
--- NOTE | 2016-05-21 17:34 | HP ---
LOUISE MCKEON : 1945 DATE OF ADMISSION: May 21, 2016 CHIEF COMPLAINT: Gastrointestinal bleed. HISTORY OF PRESENT ILLNESS: Patient has a long, complicated history of gastrointestinal bleeding with multiple endoscopic procedures, capsule endoscopy, evaluated through [facility] and another facility. It has been determined that he has angiodysplasia of the small intestine but the source has not been localized. He has had multiple blood transfusions as a consequence of these recurrent gastrointestinal bleeds. Complicating his gastrointestinal bleeds is that he has had rheumatic heart disease as a child and he has had valve replacements requiring lifelong anticoagulation. He is on warfarin. In March, he developed an abscess and cellulitis on his foot that required antibiotics use. Subsequent to the antibiotic use, he developed dark, tarry stools several weeks ago that have been progressing to where he received two units of packed red blood cells Thursday in [facility] with slight improvement of his symptoms of lightheadedness and shortness of breath with activity. The melena continued with continued lightheadedness and shortness of breath with activity and he presented to his primary care physician today who had him come to the emergency department for evaluation and to be admitted to the hospital. In the emergency department he was found to have a hemoglobin of 7.1 with an INR of 5.94. He was provided with vitamin K and PCC to help reverse his supratherapeutic INR, and he is being admitted to the hospital for ongoing monitoring and blood transfusions. He has received over 100 blood transfusions in the past. REVIEW OF SYSTEMS: GENERAL: No fevers, chills. EENT: No throat pain, congestion. CARDIOVASCULAR: No chest pain or pressure. RESPIRATORY: Shortness of breath with activity, no coughing. ABDOMEN: No abdominal pain, nausea, vomiting. He had melena. GENITOURINARY: No difficulties with urination. MUSCULOSKELETAL: He has neck pain. NEUROLOGIC: Lightheadedness, dizziness. No numbness or tingling. PAST MEDICAL HISTORY: Includes: 1. Diabetes type 2. 2. Rheumatic fever as a child with resultant mitral and aortic valve replacement. 3. Chronic atrial fibrillation. 4. Hypertension. 5. Hyperlipidemia. 6. Acute blood loss anemia compounded by chronic anemia. PAST SURGICAL HISTORY: 1. Valve replacement surgeries. 2. Appendectomy. 3. Umbilical hernia repair. ALLERGIES: FONDAPARINUX MEDICATIONS: Include: 1. Digoxin. 2. Furosemide. 3. Glimepiride. 4. Warfarin. 5. Spironolactone. 6. Januvia. 7. Simvastatin. 8. Oxycodone. 9. Metoprolol. 10. Metformin. 11. Lisinopril. 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 Lives with his and cat. He was a tobacco user and quit about ten years ago. PHYSICAL EXAM: VITAL SIGNS: Temperature 98.3, heart rate 83, blood pressure 117/60, saturating 100% on room air. GENERAL: He is alert and oriented, no acute distress. Cooperative. HEENT: Normocephalic, atraumatic. No tenderness to palpitations. Mucous membranes are moist. Pupils are equal, round and reactive. Extraocular muscles are intact. There is no scleral icterus or conjunctival injection. NECK: Supple, trachea midline. CARDIOVASCULAR: Irregular positive S1 and S2. He has palpable pulses bilaterally radially and posterior tibial. RESPIRATORY: Clear to auscultation bilaterally. No rhonchi or wheezing. ABDOMEN: Has bowel sounds, nontender, nondistended. No rebound or guarding. MUSCULOSKELETAL: He is moving all extremities without difficulty. NEUROLOGIC: He is alert and oriented. LABORATORY STUDIES: White blood count 15.9, hemoglobin is 7.1 with hematocrit of 21.5, a platelet count of 261, PT 68.5, INR 5.94. Sodium 126, potassium 5.2, chloride 94, carbon dioxide 24, BUN 49, creatinine 1.3, glucose of 414. ELECTROCARDIOGRAM: Electrocardiogram was obtained which showed an atrial fibrillation with a rate of around 89 beats per minute with a PVC, QRS duration of 118 ms, QTc of 377 ms. There is no acute ST segment elevations or depressions. Left axis deviation. ASSESSMENT: A 70-year-old male with recurrent gastrointestinal bleeds presenting with melena. PLAN: 1. Gastrointestinal bleed. Will provide Protonix and a blood transfusion and monitor. He is on telemetry. 2. Hyperkalemia with a potassium of 5.2. We will monitor this. Continue his diuretics, and he will be receiving IV fluids. 3. Hyperglycemia with a blood sugar of 414. We will continue his diabetic medications and we will cover with a sliding scale. 4. Supratherapeutic INR of 5.9. He has received PCC and vitamin K. We will recheck his INR after medications and monitor. It will be a delicate balance with his requirement for warfarin and his gastrointestinal bleed. 5. Acute blood loss anemia. We will provide two units of red blood cells at this time and monitor. 6. Hyponatremia. We will give him gentle fluid hydration. 7. Chronic kidney disease stage 3, stable. We will monitor. 8. Rheumatic heart disease with replacement valves. Patient is asymptomatic. We will restart his warfarin in the morning. 9. Diabetes type 2. We will continue his home medications and provide meal coverage. 10. Hypertension, stable. 11. Patient is a DO NOT RESUSCITATE. Cc: Binh Cleary M.D.
[2016-05-21] MEDS: DOCUSATE SODIUM 100 MG CAPSULE PO SCH ×2 (20:56→21:27)
[2016-05-21] MEDS: METOPROLOL TARTRATE 50 MG TABLET PO SCH (20:57)
[2016-05-21] MEDS ORDERED: GLIMEPIRIDE 4 MG TABLET PO SCH (21:00)
[2016-05-21] MEDS ORDERED: METFORMIN HCL 500 MG TABLET PO SCH (21:00)
[2016-05-21] MEDS: ACETAMINOPHEN 325 MG TABLET PO PRN (23:27)
[2016-05-21 23:30] LABS: HEMATOCRIT 22.6 % (32.0-52.0); HEMOGLOBIN 7.5 gm/l (14.0-18.0)
[2016-05-22 05:50] LABS: ABSOLUTE NEUTROPHIL COUNT 7.1 K/mm3 (1.8-7.7); BASO % 0.4 % (0.2-1.0); EOS # 0.2 (0.0-0.5); EOS % 2.3 % (0.9-2.9); HEMATOCRIT 23.1 % (32.0-52.0); HEMOGLOBIN 7.5 gm/l (14.0-18.0); IMM NEUT # 0.5 K/mm3 (0-0.2); IMM NEUT% 4.9 % (0-1); LYMPH # 0.8 (1.0-4.8); LYMPH % 8.5 % (15-45); MEAN CELL VOLUME 92.8 fl (80.0-94.0); MEAN CORPUSCULAR HEMOGLOBIN 30.1 pg (27.0-31.0); MEAN CORPUSCULAR HGB CONC 32.5 g/dl (33.0-37.0); MEAN PLATELET VOLUME 11.1 fl (7.4-10.4); MONO # 0.7 (0.0-0.8); MONO % 7.6 % (4-12); NEUT % 76.3 % (43-75); PLATELET COUNT 192 K/mm3 (130-400); RED CELL DISTRIBUTION WIDTH 20.7 % (11.5-14.5)
[2016-05-22 06:08] LABS: CALCIUM 8.9 mg/dL (8.6-10.3)
[2016-05-22 06:11] LABS: INR 1.28; PROTHROMBIN TIME 13.6 SECONDS (9.3-11.4)
[2016-05-22] MEDS ORDERED: SODIUM CHLORIDE 0.9% 500 ML IV PRN (06:38)
[2016-05-22 06:51] LABS: ANISOCYTOSIS 2+; PLATELET ESTIMATE NORMAL (NORMAL); POIKILOCYTOSIS 1+; SPHEROCYTE 1+
[2016-05-22] MEDS: SODIUM CHLORIDE 0.9% 1,000 ML IV SCH (07:35)
--- NOTE | 2016-05-22 07:44 | PDOC43 ---
- Subjective Chief Complaint: GIB Patient doing well, received 2UPRBC without incident overnight. H&H with little response which he says can happen for him. Dizziness and shortness of breath improved. He is hungry this morning Subjective: Reports Pain Tolerable, Reports Tolerating Diet Well, Reports Urinating Without Difficulty, Denies Shortness of Breath, Denies Cough, Denies Chest Pain, Denies Abdominal Pain, Denies Nausea, Denies Vomiting - Objective Vital Signs Temperature 97.4 F 05/22/16 04:47 Pulse Rate 90 05/22/16 04:47 Respiratory Rate 15 05/22/16 07:17 Blood Pressure 145/59 05/22/16 04:47 O2 Saturation by Pulse Oximetry 97 05/22/16 04:47 Oxygen Delivery Method Room Air Oxygen Flow Rate 0 Intake and Output 05/20/16 05/21/16 05/22/16 23:59 23:59 23:59 Intake Total 1594 1015 Output Total 250 975 Balance 1344 40 General: Alert, Oriented x3, Cooperative, No Acute Distress HEENT: Atraumatic, PERRLA, EOMI, Mucous membr. moist/pink, Other (no scleral icterus, conjunctival injection or pallor) Lungs: Clear to Auscultation Bilaterally, Normal Air Movement Cardiovascular: Regular Rate and Rhythm, Normal S1, Normal S2, Murmur (click) Abdomen: Soft, Non-Distended, No Rigid, No Tenderness, No Rebounding Extremities: No Cyanosis, No Edema, No Tenderness Neurological: Normal Speech Psych/Mental Status: Normal Mood Laboratory 05/22/16 05:15 05/22/16 05:15 05/22/16 05/21/16 05/21/16 05:15 20:51 18:35 RBC 2.49 L MCHC 32.5 L RDW 20.7 H PT 13.6 H BUN 34 H POC Capillary Glucose 201 H 256 H % Immature Granulocyt 4.9 H 05/21/16 05/21/16 14:08 13:25 RBC MCHC RDW PT 16.1 H BUN POC Capillary Glucose 341 H % Immature Granulocyt Current Medications: Current meds reviewed in EMR. - Problems: Assessment/Plan (1) GIB (gastrointestinal bleeding) Qualifiers: GI bleed type/associated pathology: angiodysplasia of stomach and duodenum Qualifier Code: (K31.811) Angiodysplasia of stomach and duodenum with bleeding Status: AcuteAssessment/Plan: Melena following ABx use in March. Symptoms worsened over the past several weeks, found to have Hgb of 7.1. AFter 2UPRBC up to 7.5. Patient's symptoms imporving. WIll transfuse 3rd UPRBC and monitor. Hesitant to transfuse increasing amoutns of blood due to mechanical valve status and currently coumadin reversed as elevated yesterday. Small amount of melena last night (2) Hyponatremia Status: AcuteAssessment/Plan: resolved with IVF (3) Valvular heart disease Status: ChronicAssessment/Plan: 2nd to rheumatic heart disease as child. Valves replaced. Coumadin reversed yesterday as was supratherapeutic. Resume coumadin and bridge with loveonx (4) Anticoagulated on Coumadin Status: ChronicAssessment/Plan: INR>5. Received Vitamin K and PCC with reversal yesterday. Resuming coumadin and bridge with lovenox today (5) DM2 (diabetes mellitus, type 2) Qualifiers: Diabetes mellitus complication status: with kidney complications Diabetes mellitus complication detail: with chronic kidney disease Diabetes mellitus terminal gauger insulin use: without care home use Chronic kidney disease stage: stage 2 (mild) Qualifier Code: (E11.22) Type 2 diabetes mellitus with diabetic chronic kidney disease Status: ChronicAssessment/Plan : covering with insulin (6) Atrial fibrillation Qualifiers: Atrial fibrillation type: chronic Qualifier Code: (I48.2) Chronic atrial fibrillation Status: ChronicAssessment/Plan: stable, restarting anti-coagulation therapy (7) Dyslipidemia Status: ChronicAssessment/Plan: stable (8) HTN (hypertension), benign Status: ChronicAssessment/Plan: stable (9) Overweight (BMI 25.0-29.9) Status: ChronicAssessment/Plan: may increase medical care (10) Hyperkalemia Status: AcuteAssessment/Plan: resolved with IVF (11) CKD (chronic kidney disease), stage III Status: AcuteAssessment/Plan: stable, cuation with IVF, transfusions as do not want to precipitate worsening renal function or fluid overload (12) Anemia due to blood loss, chronic Status: AcuteAssessment/Plan: acute on chronic with recent melena. Received 2UPRBC with little improvement in H&H. Transfuse 3rd unit and monitor
[2016-05-22] MEDS ORDERED: ENOXAPARIN SODIUM 30 MG/0.3 ML SYRINGE SUB-Q SCH (07:45)
[2016-05-22] MEDS: ENOXAPARIN SODIUM 80 MG/0.8 ML SYRINGE SUB-Q SCH (08:25)
[2016-05-22] MEDS: SIMVASTATIN 40 MG TABLET PO SCH (08:26)
[2016-05-22] MEDS: GLIMEPIRIDE 4 MG TABLET PO SCH ×2 (08:26→16:28)
[2016-05-22] MEDS: FUROSEMIDE 40 MG TABLET PO SCH (08:26)
[2016-05-22] MEDS: METOPROLOL TARTRATE 50 MG TABLET PO SCH ×2 (08:26→20:39)
[2016-05-22] MEDS: DOCUSATE SODIUM 100 MG CAPSULE PO SCH ×2 (08:26→20:39)
[2016-05-22] MEDS: LISINOPRIL 5 MG TABLET PO SCH (08:27)
[2016-05-22] MEDS: SPIRONOLACTONE 25 MG TABLET PO SCH (08:27)
[2016-05-22] MEDS: METFORMIN HCL 500 MG TABLET PO SCH ×2 (08:27→16:28)
[2016-05-22] MEDS: PANTOPRAZOLE 40 MG TABLET DR PO SCH (08:31)
[2016-05-22] MEDS ORDERED: DIGOXIN 0.25 MG TABLET PO SCH (09:00)
[2016-05-22] MEDS ORDERED: SITAGLIPTIN PHOSPHATE 100 MG TABLET PO SCH (09:00)
[2016-05-22] MEDS ORDERED: BLOOD Y PLUMSET W/CASSETTE ONE (09:16)
[2016-05-22] MEDS: DIGOXIN 0.25 MG TABLET PO SCH (11:42)
[2016-05-22] MEDS: SODIUM CHLORIDE 0.9% 100 ML BAG IV SCH (12:00)
[2016-05-22] MEDS: INSULIN ASPART (DOSE) 100 UNITS/1 ML SUB-Q PRN ×2 (12:56→18:03)
[2016-05-22 14:21] LABS: HEMOGLOBIN 8.9 gm/l (14.0-18.0)
[2016-05-22] MEDS ORDERED: WARFARIN SODIUM 5 MG TABLET PO ONE (16:00)
[2016-05-23] MEDS: ACETAMINOPHEN 325 MG TABLET PO PRN (01:46)
[2016-05-23 06:20] LABS: HEMATOCRIT 23.8 % (32.0-52.0); HEMOGLOBIN 7.8 gm/l (14.0-18.0)
[2016-05-23 06:39] LABS: INR 1.4; PROTHROMBIN TIME 14.9 SECONDS (9.3-11.4)
[2016-05-23 06:43] LABS: CALCIUM 8.4 mg/dL (8.6-10.3)
[2016-05-23] MEDS: ENOXAPARIN SODIUM 80 MG/0.8 ML SYRINGE SUB-Q SCH (09:16)
[2016-05-23] MEDS: PANTOPRAZOLE 40 MG TABLET DR PO SCH (09:16)
[2016-05-23] MEDS: SPIRONOLACTONE 25 MG TABLET PO SCH (09:16)
[2016-05-23] MEDS: SIMVASTATIN 40 MG TABLET PO SCH (09:17)
[2016-05-23] MEDS: GLIMEPIRIDE 4 MG TABLET PO SCH ×2 (09:17→18:20)
[2016-05-23] MEDS: LISINOPRIL 5 MG TABLET PO SCH (09:17)
[2016-05-23] MEDS: METFORMIN HCL 500 MG TABLET PO SCH ×2 (09:17→18:19)
[2016-05-23] MEDS: FUROSEMIDE 40 MG TABLET PO SCH (09:18)
[2016-05-23] MEDS: DOCUSATE SODIUM 100 MG CAPSULE PO SCH ×2 (09:18→20:41)
[2016-05-23] MEDS: METOPROLOL TARTRATE 50 MG TABLET PO SCH ×2 (09:18→20:40)
[2016-05-23] MEDS ORDERED: FUROSEMIDE 20 MG/2 ML VIAL IV ONE (11:21)
[2016-05-23] MEDS ORDERED: SODIUM CHLORIDE 0.9% 500 ML IV PRN (11:21)
[2016-05-23] MEDS ORDERED: BLOOD Y PLUMSET W/CASSETTE ONE ×2 (11:34→14:24)
--- NOTE | 2016-05-23 11:34 | PDOC43 ---
- Subjective Chief Complaint: GIB Feeling better. Nl BM's last noc. No CP/SOB. No F/C. Feels "normal". - Objective Vital Signs Temperature 97.7 F 05/23/16 07:18 Pulse Rate 100 05/23/16 09:15 Respiratory Rate 16 05/23/16 07:18 Blood Pressure 146/55 05/23/16 09:15 O2 Saturation by Pulse Oximetry 100 05/23/16 07:18 Oxygen Delivery Method Room Air Oxygen Flow Rate 0 Intake and Output 05/22/16 05/23/16 05/24/16 06:59 06:59 06:59 Intake Total 2609 3123 700 Output Total 1225 1550 450 Balance 1384 1573 250 General: Alert, Oriented x3, Cooperative, No Acute Distress HEENT: Atraumatic Lungs: Clear to Auscultation Bilaterally Cardiovascular: Regular Rate and Rhythm, Other (mechanical valve click noted.) Abdomen: Soft, Normal Bowel Sounds, Non-Distended, No Tenderness Extremities: Normal Pulses, No Edema Laboratory 05/23/16 05:30 05/23/16 05:30 05/23/16 05/22/16 05/22/16 05:30 21:09 17:48 PT 14.9 H BUN 26 H POC Capillary Glucose 192 H 184 H Calcium 8.4 L 05/22/16 12:20 PT BUN POC Capillary Glucose 238 H Calcium Current Medications: Current meds reviewed in EMR. 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 History of extensive w/u previously. This time with melena following ABx use in March. Symptoms worsened over the past several weeks, found to have Hgb of 7.1 at admit. Now s/p 3 u prbc's and H&H sl down this AM again. Will transfuse 2 more units and follow. (2) Anemia due to blood loss, chronic Status: AcuteAssessment/Plan: Acute on chronic with recent melena as above. (3) Valvular heart disease Status: ChronicAssessment/Plan: 2nd to rheumatic heart disease as child now with mechanical valve. Con't coumadin and bridge with loveonx. Target INR 2.5-3.5. (4) Anticoagulated on Coumadin Status: ChronicAssessment/Plan: INR>5 at admit. Received Vitamin K and PCC with reversal in ER on 05/21. Now on coumadin and lovenox bridge. (5) DM2 (diabetes mellitus, type 2) Qualifiers: Diabetes mellitus complication status: with kidney complications Diabetes mellitus complication detail: with chronic kidney disease Diabetes mellitus assisted insulin use: without assisted use Chronic kidney disease stage: stage 2 (mild) Qualifier Code: (E11.22) Type 2 diabetes mellitus with diabetic chronic kidney disease Status: ChronicAssessment/Plan : covering with insulin (6) Atrial fibrillation Qualifiers: Atrial fibrillation type: chronic Qualifier Code: (I48.2) Chronic atrial fibrillation Status: ChronicAssessment/Plan: stable, restarting anti-coagulation therapy (7) HTN (hypertension), benign Status: ChronicAssessment/Plan: stable (8) CKD (chronic kidney disease), stage III Status: AcuteAssessment/Plan: stable
[2016-05-23] MEDS: SODIUM CHLORIDE 0.9% 500 ML IV PRN ×2 (11:45→14:33)
[2016-05-23] MEDS: SODIUM CHLORIDE 0.9% 100 ML BAG IV SCH (11:45)
[2016-05-23] MEDS ORDERED: WARFARIN SODIUM 5 MG TABLET PO ONE (12:30)
[2016-05-23] MEDS: DIGOXIN 0.25 MG TABLET PO SCH (12:47)
[2016-05-23] MEDS: INSULIN ASPART (DOSE) 100 UNITS/1 ML SUB-Q PRN ×2 (13:20→20:39)
[2016-05-23] MEDS ORDERED: FUROSEMIDE 20 MG/2 ML VIAL ONE (14:23)
[2016-05-23 19:44] LABS: HEMATOCRIT 29.7 % (32.0-52.0); HEMOGLOBIN 9.7 gm/l (14.0-18.0)
[2016-05-23] MEDS ORDERED: ENOXAPARIN SODIUM 100 MG/ML SYRINGE SUB-Q SCH (21:00)
[2016-05-24 05:46] LABS: HEMATOCRIT 28.3 % (32.0-52.0); HEMOGLOBIN 9.6 gm/l (14.0-18.0); MEAN CELL VOLUME 88.7 fl (80.0-94.0); MEAN CORPUSCULAR HEMOGLOBIN 30.1 pg (27.0-31.0); MEAN CORPUSCULAR HGB CONC 33.9 g/dl (33.0-37.0); RED CELL DISTRIBUTION WIDTH 19.8 % (11.5-14.5)
[2016-05-24 05:50] LABS: INR 1.8; PROTHROMBIN TIME 19.5 SECONDS (9.3-11.4)
[2016-05-24] MEDS ORDERED: ENOXAPARIN SODIUM 120 MG/0.8 ML SYRINGE SUB-Q ONE (07:28)
[2016-05-24 07:44] VITALS: BP 128/69
[2016-05-24] MEDS: METOPROLOL TARTRATE 50 MG TABLET PO SCH (08:03)
[2016-05-24] MEDS: LISINOPRIL 5 MG TABLET PO SCH (08:05)
[2016-05-24] MEDS: SIMVASTATIN 40 MG TABLET PO SCH (08:05)
[2016-05-24] MEDS: METFORMIN HCL 500 MG TABLET PO SCH (08:06)
[2016-05-24] MEDS: FUROSEMIDE 40 MG TABLET PO SCH (08:07)
[2016-05-24] MEDS: GLIMEPIRIDE 4 MG TABLET PO SCH (08:07)
[2016-05-24] MEDS: SPIRONOLACTONE 25 MG TABLET PO SCH (08:07)
[2016-05-24] MEDS: DOCUSATE SODIUM 100 MG CAPSULE PO SCH (08:07)
[2016-05-24] MEDS: PANTOPRAZOLE 40 MG TABLET DR PO SCH (08:08)
--- NOTE | 2016-05-24 09:27 | DS ---
LOUISE TONG DATE OF ADMISSION: May 21, 2016 DATE OF DISCHARGE: May 24, 2016 ADMIT DIAGNOSES: 1. Recurrent gastrointestinal bleed. 2. Acute blood loss anemia secondary to above. 3. Supratherapeutic INR. 4. Multiple other chronic medical problems at baseline. DISCHARGE DIAGNOSES: 1. Recurrent gastrointestinal bleed. 2. Acute blood loss anemia secondary to above. 3. Supratherapeutic INR. 4. Multiple other chronic medical problems at baseline. PROCEDURES: Blood transfusion for a total of five units of packed red blood cells during this hospitalization. HISTORY OF PRESENT ILLNESS: Please see Dr. Veras's note for details. Briefly, Mr. Tong is a 70-year-old male, well-known to our service from multiple admissions for similar issues. He has a long history of chronic gastrointestinal bleeds requiring frequent transfusions. He has been worked up extensively in the past. 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 In addition, he is chronically anticoagulated on Coumadin due to mechanical heart valves secondary to rheumatic fever. He presented to our emergency room on the day of admission with several day history of melanotic stools similar to what he has had in the past. He received a transfusion a day or two prior to admission. However, he was still feeling weak. He presented to the emergency room and was found to have a hemoglobin of 7.1 and an elevated INR of 5.94. He was admitted to the hospitalist service for further treatment. HOSPITAL COURSE: He was admitted. He did receive vitamin K in the emergency room. Over the course of his hospitalization, he received a total of five units of packed red cells without complication. We did resume his Coumadin on May 22, 2016, and on the day of discharge his INR is 1.8. He was receiving Lovenox bridging since May 22, 2016 as well. On the day of discharge he was feeling well. Hemoglobin and hematocrit are stable. He has had no further melanotic stools. We have elected to discharge him home with plans for close outpatient followup. He is scheduled to go to [facility] daily for Lovenox bridging and Coumadin management. DISCHARGE MEDICATIONS: 1. Coumadin as per [facility]. 2. Lovenox 1.5 mg per kg subcutaneous daily as per [facility]. All other medications as prior to admit as follows: 1. Digoxin 0.25 mg orally daily. 2. Lasix 40 mg orally daily. 3. Lisinopril 5 mg orally daily. 4. Metoprolol 25 mg orally twice daily. 5. Simvastatin 40 mg orally daily. 6. Spironolactone 25 mg orally daily. 7. Metformin 1000 mg orally twice daily. 8. Amaryl 4 mg orally twice daily. 9. Januvia 100 mg orally daily. 10. Oxycodone as needed as prior to admit. DISCHARGE FOLLOW UP: Will be with Dr. Cleary as scheduled next week. Follow up daily with the [facility] daily in the meantime as noted above.
== END 2016-05-24 09:20 | disposition home or self-care (01) | DRG 378 ==
LOC: ED 10:13 → ICU 11:57
PROVIDERS: ADMIT Family Medicine; ATTEND Family Medicine
PROC: 30233N1 Transfusion of Nonautologous Red Blood Cells into Peripheral Vein, Percutaneous Approach (ICD-10-PCS; principal; 2016-05-21)
DX: K55.21 Angiodysplasia of colon with hemorrhage (principal); D62 Acute posthemorrhagic anemia; E11.9 Type 2 diabetes mellitus without complications; I48.2 Chronic atrial fibrillation; E78.5 Hyperlipidemia, unspecified; Z87.891 Personal history of nicotine dependence; E87.5 Hyperkalemia; Z79.84 Long term (current) use of oral hypoglycemic drugs; I12.9 Hypertensive chronic kidney disease with stage 1 through stage 4 chronic kidney disease, or unspecified chronic kidney disease; N18.3 Chronic kidney disease, stage 3 (moderate); Z66 Do not resuscitate

== ENCOUNTER 2016-06-10 15:12 | Observation (INO) | payer MEDICARE ==
[2016-06-10] MEDS ORDERED: SODIUM CHLORIDE 0.9% FLUSH 10 ML ONE ×2 (15:24→21:14)
[2016-06-10] MEDS ORDERED: IV START KIT ONE ×2 (15:25→21:14)
[2016-06-10 15:35] VITALS: BMI 28.8
[2016-06-10] MEDS ORDERED: BLISTEX LIPSTICK 1 EACH TP PRN (16:44)
[2016-06-10] MEDS ORDERED: MENTHOL/CETYLPYRD 1 EACH LOZENGE PO PRN (16:44)
[2016-06-10] MEDS ORDERED: ACETAMINOPHEN 325 MG TABLET PO PRN (16:44)
[2016-06-10 17:24] LABS: INR 2.47; PROTHROMBIN TIME 27.2 SECONDS (9.3-11.4)
[2016-06-10] MEDS: PANTOPRAZOLE 40 MG TABLET DR PO SCH (17:29)
--- NOTE | 2016-06-10 18:09 | HP ---
LOUISE TONG [id number] : 1945 DATE OF ADMISSION: June 10, 2016 IDENTIFICATION: Mr. Tong is a 70-year-old followed by Dr. Gaspar. CHIEF COMPLAINT: Symptomatic anemia. HISTORY OF PRESENT ILLNESS: Mr. Tong has a long history of recurrent gastrointestinal bleeding believed be due to angiodysplasia of the small intestine. He has had extensive workup including evaluation at [facility] and no source was found. He has required intermittent transfusions for recurrent gastrointestinal bleeding. He has been having black stools for about a week and had labs done at [facility] today with a hemoglobin of 7.0. He was referred directly for observation and transfusion. As this is his third episode of symptomatic anemia in three months, it may be time for a repeat tagged red cell study to see if the source of bleeding can be located and embolized. REVIEW OF SYSTEMS: HEENT: He does report lightheadedness especially when getting up from sitting. CONSTITUTIONAL: No complaints. RESPIRATORY: Some dyspnea, no cough. CARDIAC: No chest pain. GASTROINTESTINAL: No nausea or vomiting. He has had black stool for the last week. GENITOURINARY: No symptoms. MUSCULOSKELETAL: No symptoms. PAST MEDICAL HISTORY: 1. Chronic atrial fibrillation anticoagulated on warfarin. 2. Rheumatic fever as a child with mitral and aortic valve replacements. 3. Diabetes mellitus type 2. 4. Chronic kidney disease stage 3. 5. Dyslipidemia. 6. Hypertension. 7. Chronic recurrent gastrointestinal blood loss and anemia. PAST SURGICAL HISTORY: 1. Mitral and aortic valve replacements. 2. Appendectomy. 3. Umbilical hernia repair. ALLERGIES: REPORTED TO [facility] FROM WHICH HE HAD A RASH. MEDICATIONS: 1. Glimepiride 4 mg orally twice daily. 2. Furosemide 40 mg orally daily. 3. Digoxin 0.25 mg orally daily. 4. Simvastatin 40 mg orally daily. 5. Metoprolol tartrate 25 mg orally twice daily. 6. Metformin 1000 mg orally twice daily. 7. Lisinopril 5 mg orally daily. 8. Warfarin 2.5 mg Thursday, Thursday, Thursday, Thursday, and Thursday and 5 mg on Thursday and . 9. Spironolactone 25 mg daily. HABITS: He is a former smoker, quit about ten years ago. SOCIAL HISTORY: Lives with his and cat in [place]. 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 FAMILY HISTORY: His father of a brain tumor and also had coronary artery disease. PHYSICAL EXAMINATION: GENERAL: This is a pleasant 70-year-old gentleman in no acute distress. Skin does appear pale. VITAL SIGNS: Temperature 98.1 degrees Fahrenheit, pulse 84, blood pressure 125/63, respiratory rate 16, oxygen saturation 98% on room air. HEENT: Pupils are equal, round and reactive. Extraocular muscles are intact status post cataract surgery. Oropharynx is moist. CHEST: Clear to auscultation. HEART: Is irregularly irregular with mechanical heart sounds. ABDOMEN: Is soft, nontender, normal bowel tones, no organomegaly. EXTREMITIES: Good peripheral pulses. No cyanosis, clubbing or edema. NEUROLOGIC: Alert and oriented, no focal deficits. LABORATORY DATA: White blood cell count today was normal at 8.9, hemoglobin and hematocrit 7.0 and 19.6, platelets 279. Prothrombin time and chemistry profile are pending. ASSESSMENT: Mr. Tong is a 70-year-old with recurrent symptomatic anemia from chronic gastrointestinal bleeding from angiodysplasia and chronic conditions as above. PLAN: 1. Refer to observation. 2. Type, cross and transfuse two units of packed red blood cells. 3. Continue usual outpatient medications. 4. DO NOT RESUSCITATE status per his wishes. 5. He is anticoagulated and on warfarin and does not require venous thromboembolism prophylaxis. 6. Anticipate discharged in the morning with outpatient followup with Dr. Gaspar and further workup for the chronic blood loss.
[2016-06-10] MEDS ORDERED: SODIUM CHLORIDE 0.9% 500 ML ONE ×2 (19:36→22:17)
[2016-06-10] MEDS ORDERED: BLOOD Y PLUMSET W/CASSETTE ONE ×2 (19:36→22:17)
[2016-06-10] MEDS: METOPROLOL TARTRATE 50 MG TABLET PO SCH (20:11)
[2016-06-10] MEDS: SODIUM CHLORIDE 0.9% 500 ML IV PRN ×2 (22:22→23:58)
--- NOTE | 2016-06-11 07:48 | PDOC43 ---
- Subjective Chief Complaint: dyspnea and faintness Feels better today. Up to restroom without faintness. - Objective Vital Signs Temperature 99 F 06/11/16 00:27 Pulse Rate 92 06/11/16 00:27 Respiratory Rate 14 06/11/16 01:10 Blood Pressure 126/63 06/11/16 00:27 O2 Saturation by Pulse Oximetry 97 06/11/16 00:27 Oxygen Delivery Method Room Air Oxygen Flow Rate 0 Intake and Output 06/10/16 06/11/16 06/12/16 06:59 06:59 06:59 Intake Total 1558 Output Total 400 Balance 1158 General: Alert, Oriented x3, Cooperative, No Acute Distress HEENT: Mucous membr. moist/pink Lungs: Clear to Auscultation Bilaterally Cardiovascular: Irregular, Murmur (2/6 and mechanical HS) Abdomen: Soft, Normal Bowel Sounds, No Tenderness, No Masses Extremities: Normal Pulses, No Edema Skin: Normal Color Neurological: Normal Speech Psych/Mental Status: Normal Mood Laboratory 06/10/16 17:00 06/10/16 06/10/16 06/10/16 21:51 17:28 17:00 PT 27.2 H BUN 55 H Estimated GFR 55 L POC Capillary Glucose 151 H 230 H Crossmatch 06/10/16 14:20 PT BUN Estimated GFR POC Capillary Glucose Crossmatch See Detail Current Medications: Current meds reviewed in EMR. - Problems: Assessment/Plan (1) Anemia due to blood loss, chronic Status: AcuteAssessment/Plan: Improved post transfusion (2) GIB (gastrointestinal bleeding) Qualifiers: GI bleed type/associated pathology: angiodysplasia of stomach and duodenum Qualifier Code: (K31.811) Angiodysplasia of stomach and duodenum with bleeding Status: ChronicAssessment/Plan: f/u with Dr. Gaspar, consider further w/u and treatment. (3) CKD (chronic kidney disease), stage III Status: AcuteAssessment/Plan: stable (4) Anticoagulated on Coumadin Status: ChronicAssessment/Plan: INR therapeutic (5) Atrial fibrillation Qualifiers: Atrial fibrillation type: chronic Qualifier Code: (I48.2) Chronic atrial fibrillation Status: ChronicAssessment/Plan: rate controlled VTE Prophylaxis: warfarin Disposition: home
[2016-06-11 08:09] LABS: HEMATOCRIT 21.6 % (32.0-52.0)
[2016-06-11] MEDS ORDERED: FUROSEMIDE 40 MG TABLET PO SCH (09:00)
[2016-06-11] MEDS ORDERED: SPIRONOLACTONE 25 MG TABLET PO SCH (09:00)
[2016-06-11] MEDS ORDERED: DIGOXIN 0.25 MG TABLET PO SCH ×2 (09:00→15:00)
[2016-06-11] MEDS ORDERED: LISINOPRIL 5 MG TABLET PO SCH (09:00)
[2016-06-11] MEDS ORDERED: SIMVASTATIN 40 MG TABLET PO SCH (09:00)
[2016-06-11] MEDS: METFORMIN HCL 1,000 MG TABLET PO SCH ×2 (09:13→15:14)
[2016-06-11] MEDS: PANTOPRAZOLE 40 MG TABLET DR PO SCH (09:13)
[2016-06-11] MEDS: GLIMEPIRIDE 4 MG TABLET PO SCH ×2 (09:14→15:14)
[2016-06-11] MEDS: METOPROLOL TARTRATE 50 MG TABLET PO SCH ×2 (09:14→15:15)
[2016-06-11] MEDS ORDERED: SODIUM CHLORIDE 0.9% 500 ML IV PRN (09:49)
[2016-06-11] MEDS ORDERED: WARFARIN SODIUM 2.5 MG TABLET PO SCH ×2 (10:15→15:00)
[2016-06-11] MEDS ORDERED: BLOOD Y PLUMSET W/CASSETTE ONE ×2 (11:28→14:47)
[2016-06-11 19:06] VITALS: BP 114/65
[2016-06-11 20:17] LABS: HEMATOCRIT 28.2 % (32.0-52.0); HEMOGLOBIN 9.2 gm/l (14.0-18.0)
--- NOTE | 2016-06-12 07:08 | DS ---
Papa Tong ADMIT DATE: 06/10/2016 DISCHARGE DATE: 06/11/2016 ADMIT DIAGNOSES: 1. Recurrent blood loss anemia with unknown etiology. 2. Recurrent gastrointestinal bleed, status post extensive workup with no etiology found. 3. Anticoagulated with Coumadin due to mechanical heart valves. 4. Multiple other chronic medical conditions at baseline. DISCHARGE DIAGNOSES: 1. Recurrent blood loss anemia with unknown etiology. 2. Recurrent gastrointestinal bleed, status post extensive workup with no etiology found. 3. Anticoagulated with Coumadin due to mechanical heart valves. 4. Multiple other chronic medical conditions at baseline. PROCEDURES: Transfusion of a total of 4 units of packed red cells. ADMIT HISTORY AND PHYSICAL: Please see Dr. Last's note for details. Briefly, Mr. Tong is a 70-year-old well known to our service for recurrent gastrointestinal bleeding with subsequent recurrent blood loss anemia. Etiology is felt to be secondary to angiodysplasia of the small intestine. He has been extensively worked up in years past with no site found. He is chronically anticoagulated due to mechanical heart valves which exacerbates the above. He presented on the day of admission with black stools for about a week or so. He was seen at [facility] and found to be anemic with a hemoglobin of 7.0. He was brought to the hospitalist service for repeat transfusion. HOSPITAL COURSE: He was admitted, transfused 2 units with marked improvement in his symptoms., however, his hemoglobin and hematocrit on the morning of 06/11/2016 was still 7 and 21, he was therefore transfused two more units. By the evening he was feeling well. Hemoglobin and hematocrit had increased up to 9.2 and 28.2. His stools are still a bit dark, but improved. He was very anxious to go home, so we elected to discharge him to home with plans for close outpatient follow up. DISCHARGE MEDICATIONS: As prior to admit as follows: 1. Digoxin 0.25 mg by mouth daily. 2. Lasix 40 mg by mouth daily. 3. Lisinopril 5 mg by mouth daily. 4. Metoprolol 25 mg by mouth twice daily. 5. Simvastatin 40 mg by mouth daily. 6. Spironolactone 25 mg by mouth daily. 7. Coumadin as prior to admit. 8. Metformin 1000 mg by mouth twice daily. 9. Glimepiride 4 mg by mouth twice daily. DISCHARGE FOLLOW UP: Will be with Dr. Gaspar in the next 1 to 2 days for a recheck and to initiate a referral for repeat workup as the patient is having escalating number of episodes of this recently and clearly some other solution needs to be explored other than what we are doing at this point. JOB: [id number] CC: Dr. Gaspar
[2016-06-12] MEDS ORDERED: WARFARIN SODIUM 5 MG TABLET PO SCH (15:00)
== END 2016-06-11 21:02 | disposition home or self-care (01) ==
LOC: MS 15:12
PROVIDERS: ADMIT Family Medicine; ATTEND Family Medicine
PROC: 30233N1 Transfusion of Nonautologous Red Blood Cells into Peripheral Vein, Percutaneous Approach (ICD-10-PCS; principal; 2016-06-10)
DX: K55.21 Angiodysplasia of colon with hemorrhage (principal); I48.2 Chronic atrial fibrillation; Z79.01 Long term (current) use of anticoagulants; E11.22 Type 2 diabetes mellitus with diabetic chronic kidney disease; I12.9 Hypertensive chronic kidney disease with stage 1 through stage 4 chronic kidney disease, or unspecified chronic kidney disease; N18.3 Chronic kidney disease, stage 3 (moderate); Z66 Do not resuscitate; D50.0 Iron deficiency anemia secondary to blood loss (chronic); R92.2 Inconclusive mammogram
CPT/HCPCS: 36430 ×3; 80048; 85014 ×2; 85018 ×2; 85610; 36415 ×4; 86920 ×2; 86922 ×2; 86921 ×2; 86901 ×2; 86850 ×3; A9270 ×14; J7040 ×4; P9016 ×4; G0379; G0378